=== PATIENT | male | born 1945 | race Caucasian/White ===

== ENCOUNTER 2016-11-26 15:04 | Emergency (ER) | payer OTHER, MEDICARE ==
[2016-11-26 15:15] VITALS: BP 155/93; PULSE 66; RESP 17; TEMP 97.9; O2SAT 95
--- NOTE | 2016-11-26 16:19 | EDPHY ---
H & P Stated Complaint: cut 2nd digit of l hand on metal Source: Patient Exam Limitations: No limitations - Personal History Current Tetanus/Diphtheria Vaccine: Yes - Medical/Surgical History Hx Asthma: No Hx Chronic Respiratory Disease: No Hx Diabetes: No Hx Cardiac Disease: No Hx Renal Disease: No Hx Cirrhosis: No Hx Alcoholism: No Hx HIV/AIDS: No Hx Splenectomy or Spleen Trauma: No Other PMH: denies - Social History Smoking Status: Never smoked HPI/ROS: CHIEF COMPLAINT: Left index finger laceration HISTORY OF PRESENT ILLNESS: Patient was working with bicycle when the person he was working with spun the wheel. Something on the wheel struck his left finger, causing a laceration. Moderately painful. Moderate bleeding that has been stopped with compression and Steri-Strips. This happened within the past 2 hours. No numbness or tingling. No weakness. No difficulty bending or straightening the finger. Tetanus is up-to-date as of 2 years ago. No other associated complaints or modifying factors. TIME OF INJURY: 2:30 p.m. TETANUS STATUS: Less than 2 years ago REVIEW OF SYSTEMS: Ten systems reviewed and are negative unless otherwise noted in the HPI EXAMINATION General Appearance: Alert, no distress Cardiovascular: Pulses normal throughout. Symmetric radial pulses 2+. Brisk cap refill Neurological: A&O, sensory symmetric, strength symmetric for 2 point sensation intact. Skin: Warm and dry, no rash. There is a curvilinear laceration over the left index finger, PIP joint, volar. No foreign body. Minimal bleeding. Extremities: Mild tenderness of the affected laceration extremity. Full flexion of the finger including superficialis and profundus. Full extension. Neurovascular intact distally. Psychiatric: Mood and affect normal DIFFERENTIAL DIAGNOSES: Including but not limited to laceration, complex laceration, laceration with tendinous injury, arterial injury MDM: 4:15 p.m. Laceration to the left index finger. I have applied a digital block. We will proceed with irrigation of the wound. He is neuro intact at this time. 4:10 p.m. PROCEDURE: Digital Block Indication:Finger laceration Consent: Verbal Location: Left index finger Anesthesia: Lidocaine 1% plain, 0.25% Marcaine plain, 5mL Description: The base of the left index finger was cleaned with chlorhexidine. 5 mL of the above was infused just proximal to the MCP joint. Tolerated well. Complications: None 4:50 p.m. PROCEDURE: Laceration repair Consent: Verbal Location: Left index finger, volar, overlying the PIP joint Length of repair: 1.25 cm curvilinear Complexity: Simple Layer involvement: Single Anesthesia: Digital block Irrigation: Extensive Debridement: None Procedure description: Following good anesthesia, the wound was copiously irrigated. Wound bed was explored and there is no foreign body noted. Wound borders were approximated well with good hemostasis. Tolerated well without complication. Suture/Staple material: 5-0 Ethilon, 3 simple interrupted sutures Wound care: Routine as discussed Suture/Staple removal: 7-10 Days 4:55 p.m. Simple laceration of the left index finger, volar. No involvement of the flexor tendon. Neurovascular intact postprocedure. Wound care discussed. Discharged home in stable condition. Follow up here primary care physician in 7 -10 days for suture removal. Return sooner for signs of infection as discussed SUTURE STAPLE REMOVAL: 7-10 days ED Precautions: Worsening pain. Erythema, edema, cyanosis, pallor, paresthesia or anesthesia. SUPERVISION: This patient was independently evaluated without direct examination by the attending physician. Case was discussed with attending physician. (Young Saeed ) Constitutional: Initial Vital Signs Temperature (C) 36.6 C 11/26/16 15:12 Heart Rate 66 11/26/16 15:12 Respiratory Rate 17 11/26/16 15:12 Blood Pressure 155/93 H 11/26/16 15:12 O2 Sat (%) 95 11/26/16 15:12 O2 Delivery Mode Room Air Allergies/Adverse Reactions: No Known Allergies Allergy (Verified 11/26/16 15:12) Home Medications: Medication Instructions Recorded NK [No Known Home Meds] 11/26/16 Medical Decision Making Other Provider: The patient was evaluated and managed by the Physician Customer Services Manager/ Nurse Practitioner. My co-signature indicates that I have reviewed this chart and I agree with the findings and plan of care as documented. I am the secondary supervising physician. (Alison Valencia) Departure - Departure Disposition: Home, Routine, Self-Care Clinical Impression: Finger laceration Condition: Good Instructions: Care For Your Stitches (ED), Laceration (ED) Additional Instructions: 1. Daily wound care as discussed. 2. Keep the wound clean, dry and covered. 3. Follow up here in 7-10 days for suture removal 4. Return to the emergency department for any redness, purulence, pain or difficulty bending or straighten the finger Referrals: Ruben Paulson MD [Primary Care Provider] - As per Instructions
== END 2016-11-26 17:10 | disposition home or self-care (01) ==
PROC: 0HQGXZZ Repair Left Hand Skin, External Approach (ICD-10-PCS; principal; 2016-11-26)
DX: S61.211A Laceration without foreign body of left index finger without damage to nail, initial encounter (principal); W22.8XXA Striking against or struck by other objects, initial encounter; Y99.8 Other external cause status; Y93.89 Activity, other specified